=== PATIENT | female | born 1975 | race Caucasian/White ===

== ENCOUNTER 2020-12-26 13:21 | Emergency (ER) | payer MEDICARE, MEDICAID ==
[~2020-12-26] VITALS: Ht 165.1 cm; Wt 90.9 kg
[2020-12-26 14:27] LABS: BASOPHILS % (AUTO) 0.3 % (0-1); EOSINOPHILS # (AUTO) 0.1 X10'3 (0-0.9); EOSINOPHILS % (AUTO) 0.5 % (0-6); HEMATOCRIT 42.3 % (35.0-45.0); HEMOGLOBIN 14.1 g/dl (12.0-16.0); LYMPHOCYTES # (AUTO) 1.9 X10'3 (1.1-4.8); LYMPHOCYTES % (AUTO) 14.6 % (21-51); MEAN CORPUSCULAR HEMOGLOBIN 27.7 PG (27.0-31.0); MEAN CORPUSCULAR HGB CONC 33.4 g/dL (33.0-36.5); MEAN CORPUSCULAR VOLUME 82.8 FL (78-98); MEAN PLATELET VOLUME 7.2 FL (7.4-10.4); MONOCYTES # (AUTO) 0.6 X10'3 (0-0.9); MONOCYTES % (AUTO) 4.8 % (2-12); NEUTROPHILS # (AUTO) 10.4 X10'3 (1.8-7.7); NEUTROPHILS % (AUTO) 79.8 % (42-75); PLATELET COUNT 360 X10'3 (140-440); RED CELL DISTRIBUTION WIDTH 15.6 % (11.5-14.5)
[2020-12-26 14:28] LABS: CLARITY,URINE CLEAR (Clear); COLOR,URINE YELLOW (Yellow); GLUCOSE, URINE NEGATIVE (Neg); KETONES,URINE TRACE mg/dl (Neg); LEUKOCYTE ESTERASE ,URINE NEGATIVE (Neg); NITRITES, URINE NEGATIVE (Neg); OCCULT BLOOD,URINE NEGATIVE (Neg); PH,URINE 5.5 (4.8-8.0); PROTEIN,URINE 100 mg/dl (Neg); UROBILINOGEN,URINE 0.2 E.U/dL (0.2-1.0)
[2020-12-26 14:32] LABS: URINE HCG NEGATIVE (NEG)
[2020-12-26 14:36] LABS: UA COLLECTION TYPE OTHER
[2020-12-26 14:37] LABS: BACTERIA,URINE 2+ /HPF (Neg); MUCUS STRANDS FEW /LPF (Neg); RBC,URINE 0-2 /HPF (0-2); SQUAMOUS EPITHELIAL CELL,UR MANY /LPF (FEW); WBC,URINE 0-4 /HPF (0-4)
[2020-12-26 14:38] LABS: HYALINE CASTS 0-3 /LPF (NEGATIVE)
[2020-12-26 14:40] LABS: ALANINE AMINOTRANSFERASE 29 U/L (12-78); ALBUMIN 3.9 G/DL (3.4-5.0); ALBUMIN/GLOBULIN RATIO 0.9 (1.1-1.5); ALKALINE PHOSPHATASE 113 IU/L (46-116); ANION GAP 10 (8-16); ASPARTATE AMINO TRANSFERASE 16 U/L (10-37); BILIRUBIN,TOTAL 0.5 MG/DL (0.1-1.0); BLOOD UREA NITROGEN 15 MG/DL (7-18); BUN/CREATININE RATIO 14.7 (6.6-38.0); CALCIUM 9.2 MG/DL (8.5-10.1); CHLORIDE 103 MMOL/L (99-107); CREATININE 1.02 MG/DL (0.40-0.90); GLUCOSE 169 MG/DL (70-104); POTASSIUM 3.6 MMOL/L (3.5-5.1); SODIUM 139 MMOL/L (135-145); TOTAL CARBON DIOXIDE 26.5 MMOL/L (24-32); TOTAL PROTEIN 8.1 G/DL (6.4-8.2); eGFR 59 ML/MIN
[2020-12-26 14:45] LABS: URINE AMPHETAMINE SCREEN NEGATIVE (Neg); URINE BARBITUATE SCREEN NEGATIVE (Neg); URINE BENZODIAZEPINES SCREEN NEGATIVE (Neg); URINE CANNABINOID SCREEN NEGATIVE (Neg); URINE COCAINE SCREEN NEGATIVE (Neg); URINE METHADONE SCREEN NEGATIVE (Neg); URINE OPIATE SCREEN NEGATIVE (Neg); URINE PHENCYCLIDINE SCREEN NEGATIVE (Neg)
[2020-12-26 14:48] LABS: ETHANOL < 0.010 GM/DL (0.0-0.010)
--- NOTE | 2020-12-26 15:01 | NUR ---
Pt escorted by staff from ED16 to [facility]21. Rejprt given to Digna SORIA. Pt initially refused request to walk to . When [facility] was readied for transfer, she refused to stay on the gurevans and decided she could walk. Pt is aware of her surroundings and appears to respond only when she decides too. No audio/visual hallucinations nor indications of disturbed thought processes noted.
--- NOTE | 2020-12-26 15:17 | NUR ---
Pt refuses to do what is asked of her. Pt has used the hand supervisory examiner 5 times to clean her hands. Pt also tried to get on the [employer] computer. Instructed pt that she is not to be on the computer and that she needed to return to her bed.
--- NOTE | 2020-12-26 15:27 | NUR ---
Pt refusing to answer any questions at this time.
--- NOTE | 2020-12-26 15:45 | NUR ---
Spoke with Gerardo. The pt was a man down on [address] call. They do not have any indication as to who the pt is. The [employer] Case #[id number].
--- NOTE | 2020-12-26 15:51 | NUR ---
Was found by [place] PÉREZ. Patient refused to give name/. Patient stated her name was "Alejandra Hannon" to this RN. Per [employer] this patient is not Alejandra Hannon and Brandon PÉREZ does not know who this patient is.
--- NOTE | 2020-12-26 16:17 | NUR ---
Pt standing at bedside just staring at the curtain.
--- NOTE | 2020-12-26 16:49 | NUR ---
Pt sitting on the edge of her bed starring at the curtain.
--- NOTE | 2020-12-26 16:56 | NUR ---
[employer] ofc Elia #[id number], assisting in attempts to identify pt. He reports if pt's middle name is Laney, pt may be from [place] or [place]. [place] [employer] ofc Mara was individual with initial pt contact and is purported to have engaged w/ EMS where pt was coopertive for the first time and provided a name of Alejandra Hannon. Ofc Elia indicted there is no record of an individual with the name Alejandra Hannon matching , ht & wt in state of [place]. Digna guerrero updated.
--- NOTE | 2020-12-26 17:36 | NUR ---
Pt continues to state her name is Alejandra, but will not confirm a last name or date of .
--- NOTE | 2020-12-26 20:30 | NUR ---
VERBAL ORDER RECIEVED FOR RESTRIANTS. PATIENT IS AGITATED AND VIOLENT TOWARDS STAFF AT THIS TIME. ALL NEEDS ARE MET. PATIENT IS RESTRAINED IN ALL 4 EXTREMITIES
--- NOTE | 2020-12-26 23:00 | NUR ---
PATIENT IS RESTING IN BED , WILL NOT FOLLOW COMMANDS AT THIS TIME. WATER AND FOOD WAS OFFERED. PATIENTS STATES TO BE LEFT ALONE.
--- NOTE | 2020-12-27 00:07 | NUR ---
Primary care nurse on break. Pt appears calm. Pt/RN interaction calm and appropriate. Pt offered comfort measures of toilet, water, blanket, and bed adjustment. Pt instructed on reason for restraints and criteria for restraint removal, ie saftey of pt and staff, able to follow instructions. Leg restraints removed, CSM intact BL. Pt denies pain. Pt stated, "I dont feel like myself.
--- NOTE | 2020-12-27 00:30 | NUR ---
PATIENT WAS ABLE TO HAVE RESTRAINTS REMOVED AND WALK TO THE RESTROOM AND COME OUT WITH NO ISSUES. PATIENT DID START WALKING AIMLESSLY AROUND UNIT BUT WAS DIRECTED BACK TO BED EASILY.
--- NOTE | 2020-12-27 01:18 | NUR ---
PATIENT IS VERBALIZING AND FIRST AND LAST NAME. SHE ALSO IS ABLE TO TELL ME THAT SHE KNOWS SHE IS IN [place]. SHE WOULD NOT GIVE ME ANYMORE INFOMATION AND ASKED ME TO LEAVE HER ALONE.
[2020-12-27 05:59] VITALS: BP 147/86
--- NOTE | 2020-12-27 06:45 | NUR ---
Patient observed up to bathroom, redirected back to bed by civil process server RN and willingly went. Turned self onto right side and closed her eyes
--- NOTE | 2020-12-27 07:47 | NUR ---
Sitting at edge of bed eating breakfast
--- NOTE | 2020-12-27 08:58 | NUR ---
pt seen and eval by ENOCH Mckeon, she will be released, with safety plan
--- NOTE | 2020-12-27 09:47 | NUR ---
contact info for boyfriend "Saud" [phone]
--- NOTE | 2020-12-27 09:52 | NUR ---
Waiting for patients personal items to be dropped off at front desk assistant by Saud and patient to be making decision on her disposition after that; discharged by md with safety plan in place.
--- NOTE | 2020-12-27 10:11 | NUR ---
[facility] contacted and interviewed patient. Awaiting their decision.
--- NOTE | 2020-12-27 10:29 | NUR ---
[facility] not able to accept patient until tomorrow. Deciding to stay at hotel overnight vs the mission. Given options. Saud bringing her belongings in 45 mins.
--- NOTE | 2020-12-27 10:44 | NUR ---
Mike from [facility] assisting with safe discharge
--- NOTE | 2020-12-27 11:08 | NUR ---
Pt is resting on her bed waiting for her personal belongings to be delivered to her. She continues to c/o about her discharge plan. She has an appointment to meet with [facility] tomorrow. [facility] for an [facility]. Pt continues to express her desire to not return home to her BF, "not my ." She states she came here from [place] and moved in with a man she met online. [facility] offered her assitance of a plane ticket back home to [place] and she rerfused assistance. Pt to discharge to a hotel today.
--- NOTE | 2020-12-27 11:40 | NUR ---
Pt discharged. Pt was given her personal clothing and her purse and was taken by taxi to a hotel. All personal belongings returned to her per ROQUE Wilks. She will follow up with [facility] tomorrow.
== END 2020-12-27 11:40 | disposition home or self-care (01) ==
LOC: ER 13:22
DX: F79 Unspecified intellectual disabilities (principal); Z20.822 Contact with and (suspected) exposure to COVID-19
CPT/HCPCS: 36415; 80053; 80305; 80320; 81001; 81025; 84443; 85025; 87426; 99284